=== PATIENT | female | born 1995 | race Caucasian/White ===

== ENCOUNTER 2017-07-02 16:21 | Emergency (ER) | payer SELFPAY ==
[2017-07-02] MEDS ORDERED: AMOXicillin 250 MG CAP ONE (16:45)
== END 2017-07-02 16:47 | disposition home or self-care (01) ==
LOC: ERS 16:21
DX: J02.9 Acute pharyngitis, unspecified (principal); I10 Essential (primary) hypertension; F41.9 Anxiety disorder, unspecified; F32.9 Major depressive disorder, single episode, unspecified
CPT/HCPCS: 87081; 87430; 99283